=== PATIENT | male | born 1960 | race Caucasian/White ===

== ENCOUNTER 2016-08-04 16:41 | Emergency (ER) | payer BC ==
[~2016-08-04] VITALS: Ht 177.8 cm; Wt 81.9 kg
[~2016-08-04 16:41] MED LIST: ASPIR-LOW81 MG PO; Aspirin E.C. PO; CARVEDILOL6.25 MG PO; COENZYME Q10100 M2 PO; DUTOPROL 25-121 EACH PO; FOLIC ACID1 MG PO; LISINOPRIL10 MG PO; METFORMIN HCL500 MG PO; Nitrostat,NitroQuick SL; PLAVIX75 MG PO; PRAVASTATIN SOD40 MG PO; PROZAC40 MG PO; Plavix PO; Pravachol PO; THERAGRAN1 TABLET PO; TOPROL XL25 MG PO; Toprol XL PO; VITAMIN B-1100 MG PO; VITAMIN E400 UNIT PO; Zestril,Prinivil PO
[2016-08-04] MEDS ORDERED: ATIVAN2 MG PO (18:41)
[2016-08-04 19:04] VITALS: BP 136/81
== END 2016-08-04 19:17 | disposition home or self-care (01) ==
LOC: EME 16:41 → RME 16:41
DX: F10.239 Alcohol dependence with withdrawal, unspecified (principal); I10 Essential (primary) hypertension; F32.9 Major depressive disorder, single episode, unspecified; I25.2 Old myocardial infarction; Z95.1 Presence of aortocoronary bypass graft; Z95.5 Presence of coronary angioplasty implant and graft; Z87.891 Personal history of nicotine dependence
CPT/HCPCS: 99281; 99284